=== PATIENT | male | born 1990 | race Caucasian/White ===

== ENCOUNTER 2021-10-16 19:25 | Emergency (ER) | payer MEDICAID ==
[~2021-10-16] VITALS: Ht 170.2 cm; Wt 86.2 kg
[2021-10-16 19:38] VITALS: BP 128/75
--- NOTE | 2021-10-16 21:53 | NUR ---
PT AMBULATED TO BED 12
--- NOTE | 2021-10-16 22:18 | NUR ---
pt assessment completed by precious. no nursing interventions required at this time.
[2021-10-16 22:24] VITALS: BP 102/57
--- NOTE | 2021-10-16 22:26 | NUR ---
J LUIS WRAP COMPLETED TO PT L FOOT. PT REFUSED CRUTCHES. REPORTS PAIN IMPROVEMENT.
--- NOTE | 2021-10-16 22:29 | NUR ---
Patient discharged with v/s stable. Written and verbal after care instructions given and explained. Patient verbalized understanding. Wheel Chair Assisted with to car d/t pain (refused pain medication). All questions addressed prior to discharge. Advised to follow up with PMD.
== END 2021-10-16 22:29 | disposition home or self-care (01) ==
LOC: MED 19:25
DX: S93.402A Sprain of unspecified ligament of left ankle, initial encounter (principal); X50.1XXA Overexertion from prolonged static or awkward postures, initial encounter; Y93.89 Activity, other specified; Y92.89 Other specified places as the place of occurrence of the external cause; Y99.8 Other external cause status
CPT/HCPCS: 73610; 99283